=== PATIENT | female | born 2000 | race African-American/Black ===

== ENCOUNTER 2019-06-09 10:32 | Emergency (ER) | payer MEDICAID, OTHER ==
[2019-06-09] MEDS ORDERED: NORMAL SALINE 1000 ML 1,000 ML IV ONE (10:45)
[2019-06-09] MEDS ORDERED: PIPERACILLIN/TAZOBACTAM 3.375 GM VIAL IV ONE (10:45)
--- NOTE | 2019-06-09 10:47 | ER Document Report ---
ED Medical Screen (RME) - General Chief Complaint: Finger Injury Stated Complaint: LACERATION/LEFT INDEX FINGER Time Seen by Provider: 06/09/19 10:36 Mode of Arrival: Ambulatory Information source: Patient Notes: 19-year-old female presented to ED for complaint of laceration to her left index finger on Monday. 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 She states she cleaned it out while at the time and has been keeping it dressed but it has gotten steadily more more painful. Her finger is very swollen and red. She states she does have a history of MRSA sore in her stomach abscess that she had to have cut. That is the only past medical history she has. She does not smoke drink or use any alcohol. She is alert oriented respirations regular nonlabored speaking in full sentences. She cannot bend her left index finger at all. Blood urine and x-ray have been initiated. She is also had orders for a IV of normal saline and Unasyn started. I have greeted and performed a rapid initial assessment of this patient. A comprehensive ED assessment and evaluation of the patient, analysis of test results and completion of medical decision making process will be conducted by an additional ED providers. - Related Data Allergies/Adverse Reactions: No Known Allergies Allergy (Unverified 06/09/19 10:36) Physical Exam - Vital signs Vitals: Temp Pulse Resp BP Pulse Ox 98.9 F 80 18 164/84 H 100 06/09/19 10:35 06/09/19 10:35 06/09/19 10:35 06/09/19 10:35 06/09/19 10:35 Course - Vital Signs Vital signs: Temp Pulse Resp BP Pulse Ox 98.9 F 80 18 164/84 H 100 06/09/19 10:35 06/09/19 10:35 06/09/19 10:35 06/09/19 10:35 06/09/19 10:35
[2019-06-09] MEDS ORDERED: TOBRAMYCIN SULFATE INJ 80 MG/2 ML VIAL IV ONE (11:05)
[2019-06-09] MEDS ORDERED: TETANUS/DIPHTHERIA TOX-ADULT 0.5 ML SYR (>=7YO) IM ONE (11:06)
[2019-06-09 11:07] LABS: ABSOLUTE EOSINOPHILS # (AUTO) 0.1 10^3/uL (0.0-0.6); ABSOLUTE LYMPHOCYTES (AUTO) 1.8 10^3/uL (0.5-4.7); ABSOLUTE MONOCYTES (AUTO) 0.6 10^3/uL (0.1-1.4); ABSOLUTE NEUT (AUTO) 7.2 10^3/uL (1.7-8.2); BASOPHILS % (AUTO) 0.4 % (0-2); EOSINOPHILS % (AUTO) 0.6 % (0-6); HEMATOCRIT 38.5 % (36.0-47.0); HEMOGLOBIN 13.3 g/dL (12.0-15.5); LYMPHOCYTES % (AUTO) 18.1 % (13-45); MEAN CORPUSCULAR HEMOGLOBIN 30.6 pg (27.0-33.4); MEAN CORPUSCULAR HGB CONC 34.7 g/dL (32.0-36.0); MEAN CORPUSCULAR VOLUME 88 fl (80-97); MONOCYTES % (AUTO) 6.2 % (3-13); PLATELET COUNT 264 10^3/uL (150-450); RED BLOOD COUNT 4.36 10^6/uL (3.72-5.28); RED CELL DISTRIBUTION WIDTH 13.6 % (11.5-14.0); SEGMENTED NEUTROPHILS % (AUTO) 74.7 % (42-78); TOTAL CELLS COUNTED % (AUTO) 100 %; WHITE BLOOD COUNT 9.7 10^3/uL (4.0-10.5)
[2019-06-09] MEDS ORDERED: DIPH/PERTUSS(ACELL)/TETANUS VAC/PF 0.5 ML SYR (>=10YO) IM ONE (11:09)
[2019-06-09 11:18] LABS: ALBUMIN 4.7 g/dL (3.5-5.0); ALKALINE PHOSPHATASE 46 U/L (38-126); ANION GAP 5 (5-19); ASPARTATE AMINO TRANSFERASE 19 U/L (14-36); BILIRUBIN,TOTAL 0.4 mg/dL (0.2-1.3); BLOOD UREA NITROGEN 17 mg/dL (7-20); CALCIUM 9.5 mg/dL (8.4-10.2); CARBON DIOXIDE 28 mmol/L (22-30); CHLORIDE 105 mmol/L (98-107); GLUCOSE 100 mg/dL (75-110); POTASSIUM 4.3 mmol/L (3.6-5.0); TOTAL PROTEIN 7.7 g/dL (6.3-8.2)
--- NOTE | 2019-06-09 11:30 | RADIOLOGY REPORT (SQ) ---
EXAM DESCRIPTION: FINGER LEFT IMAGES COMPLETED DATE/TIME: 06/09/2019 11:22 am REASON FOR STUDY: Infected left index finger knuckle COMPARISON: None. NUMBER OF VIEWS: Three views left hand and index finger. LIMITATIONS: None. FINDINGS: Index finger soft tissue swelling. No fracture or bone lesion. No radiopaque foreign bod y. OTHER: No other significant finding. IMPRESSION: Soft tissue swelling. No fracture or bone lesion. TECHNICAL DOCUMENTATION: JOB ID: [id number] Reading location - IP/workstation name: [email or web address]
[2019-06-09] MEDS ORDERED: KETOROLAC TROMETHAMINE INJ/PF 30 MG/1 ML SDV IV ONE (12:01)
[2019-06-09 12:42] LABS: APPEARANCE,URINE SLIGHTLY-CLOUDY; BILIRUBIN,URINE NEGATIVE (NEGATIVE); COLOR,URINE STRAW; GLUCOSE, URINE NEGATIVE (NEGATIVE); KETONES,URINE NEGATIVE (NEGATIVE); PROTEIN,URINE NEGATIVE (NEGATIVE); URINE SPECIFIC GRAVITY 1.013; UROBILINOGEN,URINE NEGATIVE mg/dL (<2.0)
--- NOTE | 2019-06-09 14:02 | ER Document Report ---
Entered by DAYO LEO SCRIBE 06/09/19 1132 Acting as scribe for:NATALIE OSBORNE MD ED General - General Chief Complaint: Finger Injury Stated Complaint: LACERATION/LEFT INDEX FINGER Time Seen by Provider: 06/09/19 10:36 Primary Care Provider: JOB SONG MD [ACTIVE PROVISIONAL STAFF] - Follow up tomorrow Mode of Arrival: Ambulatory Information source: Patient Notes: This 19-year-old female presents to the emergency department after accidentally cutting her finger with a knife four days ago. 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 Patient describes the pain as 5/5. Patient states that the redness and swelling has been getting worse ever since. Patient states that after she cut her finger, she has been unable to fully extend her finger since. Patient said that she has been tending to it at home and has continued to work as they have moved her to a [facility]. Patient reports clear drainage. Patient denies fever. - Related Data Allergies/Adverse Reactions: No Known Allergies Allergy (Unverified 06/09/19 10:36) Past Medical History - General Information source: Patient - Social History Smoking Status: Never Smoker Cigarette use (# per day): No Chew tobacco use (# tins/day): No Frequency of alcohol use: None Drug Abuse: None Lives with: Family Family History: Reviewed & Not Pertinent Patient has suicidal ideation: No Patient has homicidal ideation: No - Medical History Medical History: Negative Surgical Hx: Negative Review of Systems - Review of Systems Constitutional: See HPI. denies: Chills, Fever EENT: No symptoms reported Cardiovascular: No symptoms reported Respiratory: No symptoms reported Gastrointestinal: No symptoms reported Genitourinary: No symptoms reported Female Genitourinary: No symptoms reported Musculoskeletal: No symptoms reported Skin: See HPI, Change in color, Other - Cut over left PIP joint on left index finger Hematologic/Lymphatic: No symptoms reported Neurological/Psychological: No symptoms reported -: Yes All other systems reviewed and negative Physical Exam - Vital signs Vitals: Temp Pulse Resp BP Pulse Ox 98.9 F 80 18 164/84 H 100 06/09/19 10:35 06/09/19 10:35 06/09/19 10:35 06/09/19 10:35 06/09/19 10:35 - Notes Notes: Physical Exam: General: Alert, appears well. HEENT: Normocephalic. Atraumatic. PERRL. Extraocular movements intact. Oropharynx clear. Neck: Supple. Non-tender. Respiratory: No respiratory distress. Clear and equal breath sounds bilaterally. Cardiovascular: Regular rate and rhythm. Abdominal: Obese. Non-tender. No distension. Normal Bowel Sounds. Back: No gross abnormalities. Extremities: Moves all four extremities. Upper extremities: Normal ROM. Cut dorsally over the PIP joint on the left index finger with associated swelling and redness. No red streaking. Lower extremities: Normal inspection. No edema. Normal ROM. Neurological: Normal cognition. AAOx4. Normal speech. Psychological: Normal affect. Normal Mood. Skin: Warm. Dry. Normal color. Course - Re-evaluation Re-evalutation: 06/09/19 13:00 Patient resting comfortably at this time. 06/09/19 13:[address] Song who is the orthopedic crewman [id number] today. The plan is to have patient follow-up with Dr. Song on Monday or Monday of this week. - Vital Signs Vital signs: Temp Pulse Resp BP Pulse Ox 98.9 F 80 18 164/84 H 100 06/09/19 10:35 06/09/19 10:35 06/09/19 10:35 06/09/19 10:35 06/09/19 10:35 - Laboratory Result Diagrams: 06/09/19 10:51 06/09/19 10:51 Laboratory results interpreted by me: 06/09/19 12:10 Leukocyte Esterase Rfl MODERATE H - Diagnostic Test Radiology reviewed: Image reviewed, Reports reviewed Radiology results interpreted by me: 06/09/19 13:01 Plain film x-ray of left index finger shows soft tissue swelling no fracture, no foreign body no gas gangrene noted no other acute process. Discharge - Discharge Clinical Impression: Stenosing tenosynovitis of finger of left hand Condition: Good Disposition: HOME, SELF-CARE Additional Instructions: Tendon Laceration Referral Your cut damaged an underlying tendon. The tendon needs surgical repair. We are referring you to a specialist for this treatment. You should know that even after repair, the tendon won't be strong enough for normal use for several weeks. You'll need to work at restoring mobility once the tendon has healed. We have closed the skin over the injured tendon. A splint will be used to immobilize the tendon. The splint should NOT be removed without the doctor's permission. You should call or return if there is redness, swelling, increasing pain, red streaks, tender lumps in the armpit . He had tenosynovitis of the left index finger with an open wound over the dorsal PIP joint area with limited range of motion of extension and flexion due to either ligament tendon injury or and/or swelling. 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 Further instructions per orthopedic physician which you have been referred to. You will be discharged home on antibiotics and ibuprofen. Prescriptions: Amoxicillin/Potassium Clav [Augmentin 875-125 Tablet] 1 tab PO BID #20 tab Ibuprofen [Motrin 800 mg Tablet] 800 mg PO Q8H PRN #30 tab PRN Reason: pain Referrals: JOB SONG MD [ACTIVE PROVISIONAL STAFF] - Follow up tomorrow I personally performed the services described in the documentation, reviewed and edited the documentation which was dictated to the scribe in my presence, and it accurately records my words and actions.
[2019-06-09 14:26] VITALS: BP 115/75
== END 2019-06-09 14:26 | disposition home or self-care (01) ==
LOC: ER 10:32
DX: M65.842 Other synovitis and tenosynovitis, left hand (principal); S61.217A Laceration without foreign body of left little finger without damage to nail, initial encounter; W26.0XXA Contact with knife, initial encounter; Y99.0 Civilian activity done for income or pay; E66.9 Obesity, unspecified; Z23 Encounter for immunization
CPT/HCPCS: 99283; 90471; 96375; 96365; 96367; 36415; 87040; 84703; 85025; 80053; 81001; 73140; 90715; J1885; J3260; J7030; J2543